=== PATIENT | female | born 1995 | race Hispanic/Latino ===

== ENCOUNTER 2023-07-08 19:09 | Inpatient (IN) | payer BC ==
[2023-07-08] MEDS ORDERED: MEPERIDINE-PF 50 MG/ML SYG IVP PRN (19:30)
[2023-07-08] MEDS ORDERED: OXYTOCIN-LR 30 UNITS/500ML 500 ML IV SCH (19:30)
[2023-07-08 19:52] LABS: APPEARANCE,URINE CLEAR (CLEAR); BILIRUBIN,URINE NEGATIVE (NEGATIVE); COLOR,URINE LIGHT-YELLOW (YELLOW); GLUCOSE, URINE (UA) NEGATIVE (NEGATIVE); KETONES,URINE NEGATIVE (NEGATIVE); LEUKOCYTE ESTERASE ,URINE 500 Leu/uL (NEGATIVE); NITRATE,URINE NEGATIVE (NEGATIVE); OCCULT BLOOD,URINE NEGATIVE (NEGATIVE); PH,URINE 6.5 (5.0-8.0); PROTEIN,URINE 10 mg/dL (NEGATIVE); UROBILINOGEN,URINE 0.2 mg/dL (0.2-1.0)
[2023-07-08] MEDS ORDERED: PROMETHAZINE HCL 25 MG/ML 1ML AMPULE IM PRN (20:00)
[2023-07-08 20:07] LABS: ADD UA MICROSCOPIC YES
[2023-07-08 20:12] LABS: BACTERIA,URINE RARE /HPF (None Seen); MUCUS,URINE FEW LPF (None Seen); OTHER CASTS, URINE 1 /LPF (None Seen); SQUAMOUS EPITHELIAL CELL,UR FEW /HPF (0-2)
[2023-07-08 20:19] LABS: MEAN CORPUSCULAR HEMOGLOBIN 28.9 pg (27.0-33.0); MEAN CORPUSCULAR HGB CONC 32.9 g/dL (32.0-36.0); MEAN CORPUSCULAR VOLUME 87.9 fL (79-99); RED BLOOD CELL COUNT(AUTO) 3.87 MIL/uL (4.00-5.50); RED CELL DISTRIBUTION WIDTH 13.3 % (11.0-15.5); WHITE BLOOD COUNT (AUTO) 9.9 K/uL (4.8-10.8)
[2023-07-08] MEDS ORDERED: EPHEDRINE SULFATE 50 MG/ML AMPULE IVP PRN (20:30)
[2023-07-08] MEDS ORDERED: NALOXONE HCL 0.4 MG/1 ML ML IV PRN (20:30)
[2023-07-08] MEDS ORDERED: ROPIVACAINE 0.2% 100ML VIAL 100 ML EP PRN (20:30)
[2023-07-08] MEDS ORDERED: DINOPROSTONE 10 MG VAGINAL SUPP EC ONE (21:00)
[2023-07-08] MEDS: LACTATED RINGERS 1000ML 1,000 ML IV PRN (21:06)
[2023-07-08 21:50] LABS: HIV 1&2 ANTIBODY Non-Reactive (Negative); HIV-1 p24 Antigen Non-Reactive (Negative)
[2023-07-09] MEDS: LACTATED RINGERS 1000ML 1,000 ML IV PRN ×2 (02:32→04:57)
[2023-07-09] MEDS ORDERED: CEFAZOLIN SODIUM 1 GM VIAL IVPB PRN (08:00)
[2023-07-09] MEDS ORDERED: CEFAZOLIN SODIUM 1 GM VIAL ONE ×2 (08:05→08:10)
[2023-07-09] MEDS ORDERED: CEFAZOLIN SODIUM 2 GM VIAL ONE (08:05)
[2023-07-09] MEDS ORDERED: ONDANSETRON 4MG INJ ONE (08:11)
[2023-07-09] MEDS ORDERED: MORPHINE PF 100MG/10ML AMP IV ONE (08:12)
[2023-07-09] MEDS ORDERED: OXYTOCIN 10 USP UNITS/ML ONE ×2 (08:12→09:00)
[2023-07-09] MEDS ORDERED: FENTANYL CITRATE PF 50 MCG/1 ML 2ML VIAL ONE (08:12)
[2023-07-09] MEDS ORDERED: EPHEDRINE SULFATE 50 MG/ML AMPULE ONE (08:28)
[2023-07-09] MEDS ORDERED: GLYCOPYRROLATE 1 MG/5 ML SYRINGE ONE (08:45)
[2023-07-09 08:59] LABS: RAPID PLASMA REAGIN NONREACTIVE (NONREACTIVE)
[2023-07-09] MEDS ORDERED: 0.9%NACL 10ML VIAL IVP PRN (12:00)
[2023-07-09] MEDS ORDERED: MEPERIDINE-PF 75 MG/ML SYG IM PRN (12:00)
[2023-07-09] MEDS ORDERED: PROMETHAZINE HCL 25 MG/ML 1ML AMPULE IM PRN (12:00)
[2023-07-09] MEDS ORDERED: OXYTOCIN-LR 30 UNITS/500ML 500 ML IV PRN (12:00)
[2023-07-09 12:27] VITALS: BP 124/75; PULSE 55; RESP 16
[2023-07-09 15:49] VITALS: BP 104/55; PULSE 47
[2023-07-09] MEDS: DEXTROSE 5 %-0.45 % NACL 1,000 ML IV PRN (18:18)
[2023-07-09] MEDS ORDERED: ACETAMINOPHEN WITH CODEINE 1 TAB TAB PO PRN (18:30)
[2023-07-09 19:20] VITALS: BP 99/49; PULSE 57; RESP 18
[2023-07-09] MEDS: LABETALOL HCL 100 MG TABLET PO SCH (20:05)
[2023-07-09 22:53] VITALS: BP 113/47; PULSE 56; RESP 20
[2023-07-10] MEDS: IBUPROFEN 800 MG TAB PO PRN ×2 (02:25→09:59)
[2023-07-10 02:32] VITALS: BP 103/49; PULSE 59; RESP 18
[2023-07-10] MEDS: DEXTROSE 5 %-0.45 % NACL 1,000 ML IV PRN (03:55)
[2023-07-10 06:20] LABS: HEMATOCRIT 28.8 % (36-48); MEAN CORPUSCULAR HEMOGLOBIN 28.9 pg (27.0-33.0); MEAN CORPUSCULAR HGB CONC 32.6 g/dL (32.0-36.0); MEAN CORPUSCULAR VOLUME 88.6 fL (79-99); RED BLOOD CELL COUNT(AUTO) 3.25 MIL/uL (4.00-5.50); RED CELL DISTRIBUTION WIDTH 13.5 % (11.0-15.5); WHITE BLOOD COUNT (AUTO) 11.9 K/uL (4.8-10.8)
[2023-07-10] MEDS ORDERED: LANOLIN 30GM OINTMENT TP PRN (07:00)
[2023-07-10] MEDS ORDERED: BISACODYL 10 MG SUPP.RECT RC PRN ×2 (07:00→10:00)
[2023-07-10] MEDS ORDERED: DIPHENHYDRAMINE HCL 25 MG CAPSULE PO PRN (07:00)
[2023-07-10 07:30] VITALS: BP 108/65; PULSE 63; RESP 18
[2023-07-10] MEDS: LABETALOL HCL 100 MG TABLET PO SCH (09:00)
[2023-07-10] MEDS: SIMETHICONE 80 MG TAB.CHEW PO PRN ×3 (09:57→20:55)
[2023-07-10] MEDS: DOCUSATE SODIUM 100 MG CAP PO SCH ×2 (09:57→20:55)
[2023-07-10] MEDS ORDERED: ACETAMINOPHEN 500 MG TABLET PO PRN (10:00)
[2023-07-10] MEDS ORDERED: ACETAMINOPHEN WITH CODEINE 1 TAB TAB PO PRN (10:00)
[2023-07-10 11:10] VITALS: BP 101/55; PULSE 69
[2023-07-10] MEDS: HYDROCODONE/ACETAMINOPHEN 5/325 MG TAB PO PRN (13:12)
[2023-07-10 16:00] VITALS: BP 109/65; PULSE 60; RESP 18
[2023-07-10 19:20] VITALS: BP 103/61; PULSE 61; RESP 20
[2023-07-10 23:20] VITALS: BP 112/56; PULSE 60; RESP 18
[2023-07-11 03:47] VITALS: BP 99/66; PULSE 65; RESP 18
[2023-07-11] MEDS: HYDROCODONE/ACETAMINOPHEN 5/325 MG TAB PO PRN (05:52)
[2023-07-11 07:19] VITALS: BP 107/59; PULSE 65; RESP 18
[2023-07-11] MEDS ORDERED: ACET-2079 PO (08:44)
[2023-07-11] MEDS: DOCUSATE SODIUM 100 MG CAP PO SCH ×2 (09:05→21:20)
[2023-07-11] MEDS: SIMETHICONE 80 MG TAB.CHEW PO PRN ×2 (09:05→21:20)
[2023-07-11] MEDS: IBUPROFEN 800 MG TAB PO PRN ×2 (09:06→16:28)
[2023-07-11 12:35] VITALS: BP 103/62; PULSE 67; RESP 20
[2023-07-11 16:00] VITALS: BP 101/63; PULSE 68; RESP 18
[2023-07-11 19:30] VITALS: BP 108/69; PULSE 79; RESP 20
[2023-07-11 23:00] VITALS: BP 109/70; PULSE 69; RESP 20
[2023-07-12 03:34] VITALS: BP 96/56; PULSE 73; RESP 18
[2023-07-12] MEDS: HYDROCODONE/ACETAMINOPHEN 5/325 MG TAB PO PRN (03:42)
[2023-07-12 07:41] VITALS: BP 116/76; PULSE 71; RESP 18
[2023-07-12] MEDS: SIMETHICONE 80 MG TAB.CHEW PO PRN (09:05)
[2023-07-12] MEDS: DOCUSATE SODIUM 100 MG CAP PO SCH (09:05)
[2023-07-12] MEDS: IBUPROFEN 800 MG TAB PO PRN (09:09)
== END 2023-07-12 12:45 | disposition home or self-care (01) | DRG 788 ==
LOC: LDH 19:09 → WSH 07-09 12:36
PROVIDERS: ADMIT Obstetrics & Gynecology; ATTEND Obstetrics & Gynecology
PROC: 10D00Z1 Extraction of Products of Conception, Low, Open Approach (ICD-10-PCS; principal; 2023-07-09 08:25)
DX: O77.0 Labor and delivery complicated by meconium in amniotic fluid (principal); O99.214 Obesity complicating childbirth; E66.01 Morbid (severe) obesity due to excess calories; Z37.0 Single live birth; O69.81X0 Labor and delivery complicated by cord around neck, without compression, not applicable or unspecified; Z3A.40 40 weeks gestation of pregnancy; O48.0 Post-term pregnancy
CPT/HCPCS: 36415; 59510; 81001; 85027; 86592; 86701; 86850; 86900; 86901; 87088; 87340; 87390; A4344; G0378; J0690; J2175; J2274; J2405; J2550; J2590; J3010; J3490; J7120; A4248